=== PATIENT | female | born 1970 | race Caucasian/White ===

== ENCOUNTER 2016-08-23 22:34 | Emergency (ER) | payer OTHER ==
[~2016-08-23] VITALS: Ht 157.5 cm; Wt 93.2 kg
[~2016-08-23 22:34] MED LIST: ALBU8.5H2 IH; BECL8.7A5 INH; CAPT50TA3 PO; CLON0.5T PO; LIT300 PO; OMEP-113 PO; PROP160C2 PO; TOPI50TA32 PO; TRAM50TA2 PO
[2016-08-23 22:46] VITALS: BP 132/92; PULSE 77; RESP 16; O2SAT 97
--- NOTE | 2016-08-23 22:58 | ED.REPORT ---
HPI-Allergic Reaction Date of Service Aug 23, 2016 ED Provider: Edward Arnett MD A 45 year old female with a history of hypertension, DM, hyperlipidemia, CAD, PSVT, and PVCs presents to the ED with right-sided facial swelling onset yesterday. The patient also reports facial tingling and throat swelling. She denies dysphagia. The patient took Benadryl x2 just prior to arrival. She believes her symptoms may be an allergic reaction to contrast she drank for an MRI yesterday. The patient has experienced similar symptoms in the past in response to processed food. Nursing Notes Stated Complaint: POSSIBLE SWELLING OF FACE AND THROAT Chief Complaint: Allergic Reaction Nursing Notes Reviewed: Yes Allergies: Coded Allergies: Sulfa (Sulfonamide Antibiotics) (Verified Allergy, Unknown, 08/20/15) acetaminophen (Verified Allergy, Unknown, 08/20/15) cefaclor (Verified Allergy, Unknown, 08/20/15) celecoxib (Verified Allergy, Unknown, 08/20/15) naproxen (Verified Allergy, Unknown, 08/20/15) nitrofurantoin (Verified Allergy, Unknown, 08/20/15) prochlorperazine (Verified Allergy, Unknown, 08/20/15) propoxyphene (Verified Allergy, Unknown, 08/20/15) venlafaxine (Verified Allergy, Unknown, 08/20/15) Scheduled Beclomethasone Dipropionate (Qvar) 8.7 Gm Aer.w.adap 2 PUFF INH BID Captopril (Captopril) 50 Mg Tablet 50 MG PO BID Clonazepam (Klonopin) 0.5 Mg Tablet 0.5 MG PO DAILY [place] Carbonate ([place] Carbonate) 300 Mg Cap 300 MG PO BID Omeprazole Magnesium (Omeprazole) 20 Mg Capsule.dr 40 MG PO DAILY Prednisone (PredniSONE) 20 Mg Tablet 20 MG PO TID Topiramate (Topamax) 50 Mg Tablet 50 MG PO BID Scheduled PRN Albuterol HFA (Proair HFA) 8.5 Gm Hfa.aer.ad 2 PUFFS IH Q4 PRN PRN For Shortness of Breath Tramadol (Tramadol) 50 Mg Tablet 50 MG PO Q4H PRN PRN For Pain Miscellaneous Medications Propranolol ER (Propranolol ER) 160 Mg Cap.sa.24h 160 MG PO General Time Seen by MD: 22:54 Chief Complaint Swelling face Hx Obtained From: Patient Arrived By: Walk-in Onset Occurred: Yesterday Context of Onset: Unknown Symptom Duration: Since onset Progression Since Onset: Gradually worsening Severity: Current: No pain currently Severity: Maximum: No pain Associated with: Denies: Difficulty swallowing, Vomiting Pertinent Negative: Relieved by nothing Immunizations: Unknown Recent Healthcare: Recent doctor visit Similar Sx Previous: Yes Past Medical History Past Medical History Notes: fibromalgyia, multiple ortho surgeries Past Medical History Obesity PVC PSVT GERD Migraines HTN Hyperlipidemia Coronary artery disease DM Concussion - 1996 Reports: Hypertension Past Surgical History Multiple knee, shoulder, ankle surgeries Cholecystectomy Hysterectomy Family History Cancer (breast, colon, cervical, uterine) Smoking History Never Smoker Social History Alcohol Use: Denies alcohol use Drug Use: Denies drug use Occupation lives with boyfriend, no work or school Ambulatory Status Independent Review of Systems Review of Systems Note: + facial paresthesia - dysphagia Constitutional: Denies: Fever Ears / Nose / Throat: Reports: Throat swelling Respiratory: Denies: Non-productive cough, Shortness of breath GI: Denies: Vomiting Skin: Reports Swelling (Right-sided face) Complete sys rev & neg: except as marked. Physical Exam Initial Vital Signs Vital Signs (First) Date Time Temp Pulse Resp B/P Pulse Ox O2 Delivery O2 Flow Rate FiO2 08/23/16 22:46 36.4 77 16 132/92 97 Room Air Initial VS: Reviewed, Vital signs abnormal Head / Eyes: Atraumatic, Normocephalic Neck: Supple, Full range of motion Neurologic: Alert, Oriented, Nonfocal Psychiatric: Mood/affect normal, Behavior normal, Normal thought content General/Constitutional: Awake, Alert Respiratory / Chest: Breath sounds NL, Breath sounds = bilat, No respiratory distress Cardiovascular: Heart rate NL, Regular rhythm, Heart sounds NL Skin: No rash, Warm, Dry No urticaria ENT: Airway patent, Mucous membranes moist Pharynx / Tonsils / Uvula: Positive: Uvula edematous Left-sided facial swelling Left-sided pharyngeal edema Interpretation & Diagnostics Lab Results Interpretation Test 08/23/16 23:05 Hold Purple Top Tube Received (Received) Hold Blue Top Tube Received (Received) Hold [place] Top Tube Received (Received) Re-Eval/Medical Decision Med Decision/Clinical Course Allergic reaction, possibly to captopril, CT contrast dye, or sulfites. Instructed to avoid these. We will use Benadryl and prednisone for 3 days. Return to emergency room as needed. Follow-up with primary provider for persistent symptoms. Source of Hx: Old records Re-Evaluation/Progress : Time of Eval: 23:57 Patient Status: Condition improved Re-Evaluation/Progress Note: Discussed with patient lab results, diagnosis, and plan for discharge. Follow-up and return to the ER instructions given. Patient agrees with plan for care and all questions were addressed. Counseled Regarding: Diagnosis, Lab results, Need for follow-up, When/why to return to ED Discharge & Departure Primary Impression: Allergic reaction Encounter type: initial encounter Qualified Code: T78.40XA - Allergy, unspecified, initial encounter Disposition: Home Discharge Condition All VS Reviewed: Yes Condition: Stable Patient Instructions: Anaphylaxis (DC) Additional Instructions: The most likely causes of your allergies are possible sulfites in the new cheese , contrast allergy, or captopril. Avoid these and talk to your primary provider about an alternative to captopril. Benadryl 25 mg by mouth 3 times a day for the next few days, to be purchased [id number]. Prednisone 20 mg by mouth 3 times a day for 3 days, #9 prescription written. Return here if you have increasing trouble breathing. Call me at [phone] between the hours of 9 PM and 6 AM for the next few nights if you have any problems, questions or concerns. Referrals: Bryn Juan MD (PCP) Scribe Attestation Portions of this note were transcribed by Jadyn Oglesby. I, Dr. Arnett, personally performed the history, physical exam, and medical decision-making; I reviewed and confirmed the accuracy of the information in the transcribed note. Signed by: Melody Medina, 08/24/2016, 01:30 copies to: Bryn Juan MD, Howard L MD Aug 23, 2016 22:58 JADYN OGLESBY Aug 23, 2016 23:06
[2016-08-23] MEDS ORDERED: MethylprednisoLONE Sodium Succinate 62.5 mg/mL 2 mL Inj IVPUSH ONE (23:05)
[2016-08-23] MEDS ORDERED: 0.9% Sodium Chloride 1,000 ML IV ONE (23:05)
[2016-08-23] MEDS ORDERED: Ondansetron 2 mg/mL 2 mL Inj IVPUSH PRN (23:20)
[2016-08-24] MEDS ORDERED: PRE20 PO (00:06)
[2016-08-24 00:41] VITALS: BP 137/94; PULSE 72; RESP 16; O2SAT 96
[2016-10-11] MEDS ORDERED: METF500T4 PO (10:17)
[2016-10-11] MEDS ORDERED: BUTA1TAB52 PO (10:17)
[2016-10-11] MEDS ORDERED: ASPI-973 PO (10:17)
[2016-10-11] MEDS ORDERED: ZONI50CA3 PO (10:17)
[2016-10-11] MEDS ORDERED: TOPI50TA32 PO (10:17)
[2016-10-11] MEDS ORDERED: THIO300C PO (10:17)
[2016-10-11] MEDS ORDERED: ONDA-54 PO (10:17)
[2016-10-11] MEDS ORDERED: METO50TA3 PO (10:17)
[2016-10-11] MEDS ORDERED: ALBU8.5H2 INHALATION (10:17)
[2016-10-11] MEDS ORDERED: CAPT50TA3 PO (10:17)
[2016-10-11] MEDS ORDERED: BECL8.7A6 INHALATION (10:17)
== END 2016-08-24 00:49 | disposition home or self-care (01) ==
LOC: SED 22:34
DX: T78.40XA Allergy, unspecified, initial encounter (principal); X58.XXXA Exposure to other specified factors, initial encounter; Y92.9 Unspecified place or not applicable; Y93.9 Activity, unspecified; Y99.9 Unspecified external cause status; I10 Essential (primary) hypertension; E11.9 Type 2 diabetes mellitus without complications; E78.5 Hyperlipidemia, unspecified; I25.10 Atherosclerotic heart disease of native coronary artery without angina pectoris; I47.1 Supraventricular tachycardia; I49.3 Ventricular premature depolarization; K21.9 Gastro-esophageal reflux disease without esophagitis; Z88.2 Allergy status to sulfonamides; Z88.6 Allergy status to analgesic agent; Z88.1 Allergy status to other antibiotic agents; Z88.8 Allergy status to other drugs, medicaments and biological substances; Z88.5 Allergy status to narcotic agent
CPT/HCPCS: 96361; 96374; 96375; 99284; J1200; J2405; J2930; J7030

== ENCOUNTER 2016-10-15 05:41 | Day surgery (SDC) | payer OTHER ==
[~2016-10-15] VITALS: Ht 157.5 cm; Wt 93.2 kg
[2016-10-15] VITALS (9 sets, daily range): BP systolic 68–152; BP diastolic 76–91; PULSE 62–84; RESP 16–23; O2SAT 92–100
[~2016-10-15 05:41] MED LIST changes: -ALBU8.5H2 IH; +ALBU8.5H2 INHALATION; +ASPI-973 PO; -BECL8.7A5 INH; +BECL8.7A6 INHALATION; +BUTA1TAB52 PO; -CLON0.5T PO; -LIT300 PO; +Lactated Ringer's 1,000 ML IV ONE; +METF500T4 PO; +METO50TA3 PO; -OMEP-113 PO; +ONDA-54 PO; -PROP160C2 PO; +THIO300C PO; -TRAM50TA2 PO; +ZONI50CA3 PO
[2016-10-15] MEDS ORDERED: Ondansetron 2 mg/mL 2 mL Inj ONE (05:42)
[2016-10-15] MEDS ORDERED: Lidocaine PF 1% 30 mL Inj ONE (05:42)
[2016-10-15] MEDS ORDERED: fentaNYL-PF 50 mCg/mL 2 mL Inj ONE (05:42)
[2016-10-15] MEDS ORDERED: Rocuronium 10 mg/mL 5 mL Inj ONE (05:42)
[2016-10-15] MEDS ORDERED: Dexamethasone 4 mg/mL Inj ONE (05:42)
[2016-10-15] MEDS ORDERED: Propofol 10,000 mCg/mL 20 mL Inj ONE (05:42)
[2016-10-15] MEDS ORDERED: Lidocaine 2%-Epi 1:100,000 20 mL Inj INFILTRATE ONE (07:25)
[2016-10-15] MEDS ORDERED: Lactated Ringer's 500 ML IV PRN (08:13)
[2016-10-15] MEDS ORDERED: Lactated Ringer's 1,000 ML IV SCH (08:13)
[2016-10-15] MEDS ORDERED: Phenylephrine 10,000 mCg/mL Inj IVPUSH PRN (08:15)
[2016-10-15] MEDS ORDERED: MetoCLOpramide 5 mg/mL 2 mL Inj IVPUSH PRN (08:15)
[2016-10-15] MEDS ORDERED: Ondansetron 2 mg/mL 2 mL Inj IVPUSH PRN (08:15)
[2016-10-15] MEDS ORDERED: fentaNYL-PF 50 mCg/mL 2 mL Inj IVPUSH PRN (08:15)
[2016-10-15] MEDS ORDERED: Labetalol 5 mg/mL 4 mL Inj IV PRN (08:15)
[2016-10-15] MEDS ORDERED: Dexamethasone 4 mg/mL Inj IVPUSH PRN (08:15)
[2016-10-15] MEDS ORDERED: EPHEDrine Sulfate 50 mg/mL Inj IVPUSH PRN (08:15)
[2016-10-15] MEDS ORDERED: HYDROmorphone 1 mg/mL Inj IVPUSH PRN (08:15)
[2016-10-15] MEDS ORDERED: Atropine 0.4 mg/mL Inj IVPUSH PRN (08:15)
--- NOTE | 2016-10-15 08:16 | PCM.HPANE ---
Patient Data Date of Service: Oct 15, 2016 Surgeon Admitting Provider: Attending Provider:Christ Douglas MD Primary Care Physician:Antonio Marcelo MD Other Provider:Randy Galeas Anesthesia Reason for Visit Chronic Tonsillitis Ht/WT & BMI Height (Feet): 5 Height (Inches): 2.00 Weight (Kilograms): 93.2 Body Mass Index 37.00 Allergies Coded Allergies: Sulfa (Sulfonamide Antibiotics) (Verified Allergy, Unknown, 08/20/15) acetaminophen (Verified Allergy, Unknown, 08/20/15) cefaclor (Verified Allergy, Unknown, 08/20/15) celecoxib (Verified Allergy, Unknown, 08/20/15) naproxen (Verified Allergy, Unknown, 08/20/15) nitrofurantoin (Verified Allergy, Unknown, 08/20/15) prochlorperazine (Verified Allergy, Unknown, 08/20/15) propoxyphene (Verified Allergy, Unknown, 08/20/15) venlafaxine (Verified Allergy, Unknown, 08/20/15) Past Anesthesia History Anesthesia History: Denies:: Abnormal Airway, Anesthesia Reactions (hx nausea/ vomiting), Difficult Intubation, Fam Anesthesia Reaction, Fam Malignant Hypertherm, Malignant Hyperthermia Diabetes History Hx Diabetes?: No Type of Diabetes: Type II Glycemic Control: Oral Medication MRSA MRSA: No Medications Hypertension Medication: Yes Home Meds Incl Beta Manish: Yes Date Beta Manish Taken: Oct 15, 2016 Time Beta Manish Taken: 0430 Reported Medications Alpha Lipoic Acid 300 Mg [id number] Mg PO DAILY 10/11/16 Zonisamide 50 Mg Smgthew33 Mg PO BID 10/11/16 Beclomethasone Dipropionate (Qvar)8.7 Gm Aer.w.adap2 Puff INHALATION BID #8.7 GM 10/11/16 Albuterol HFA (Proair HFA)8.5 Gm Hfa.aer.ad2 Puffs INHALATION Q4H PRN For Shortness of Breath #1 INHALER 10/11/16 Ondansetron 8 Mg Tablet8 Mg PO Q8H PRN For Nausea 10/11/16 Metoprolol Tartrate 50 Mg Fnginb17 Mg PO BID 30 Days Ref 0 10/11/16 Metformin 500 Mg Tyepsz096 Mg PO BID Ref 0 10/11/16 Captopril 50 Mg Ujdhiz31 Mg PO BID Ref 0 10/11/16 Butalbital/Acetaminophen 50-325 mg 1 Each Tablet1-2 Tablet PO Q4H 10/11/16 Aspirin 81 Mg Jqtzxo59 Mg PO DAILY Ref 0 10/11/16 Discontinued Reported Medications Topiramate (Topamax)50 Mg Rxpxkr51 Mg PO BID Ref 0 10/11/16 Topiramate (Topamax)50 Mg Iieiap94 Mg PO BID 30 Days Ref 0 10/25/14 Beclomethasone Dipropionate (Qvar)8.7 Gm Aer.w.adap2 Puff INH BID 10/25/14 Propranolol ER 160 Mg Cap.sa.83w445 Mg PO 10/25/14 Albuterol HFA (Proair HFA)8.5 Gm Hfa.aer.ad2 Puffs IH Q4 PRN For Shortness of Breath #1 INHALER 10/25/14 Omeprazole Magnesium (Omeprazole)20 Mg Capsule.dr40 Mg PO DAILY 30 Days Ref 0 10/25/14 [place] Carbonate 300 Mg Ljh723 Mg PO BID 10/25/14 Clonazepam (Klonopin)0.5 Mg Tablet0.5 Mg PO DAILY For Anxiety 30 Days Ref 0 10/25/14 Captopril 50 Mg Dvrsto90 Mg PO BID 30 Days Ref 0 10/25/14 Discontinued Scripts Prednisone (PredniSONE)20 Mg Mdbfvx64 Mg PO TID #9 TABLET Prov:Edward Arnett MD 08/24/16 Tramadol 50 Mg Djgyeb49 Mg PO Q4H PRN For Pain #10 TABLET Ref 0 Prov:Martine Rivera PRODUCT DEVELOPMENT 03/13/15 History HEENT History: Positive for:: Dysphagia (tonsils current admission problem) Hearing Problem TMJ Denies:: Abnormal Airway Cataracts Difficult Intubation Glaucoma Hx of Heart Problems?: Yes Cardiovascular History: Positive for:: Atrial Fibrillation Hypertension Irregular Heartbeat (palpitations, PSVT ) Denies:: AICD Chest Pain Congestive Heart Failure Pacemaker Thrombophlebitis Valvular Heart Disease (echo 10/2015- ef 60-65%) Hx of Respiratory Problem?: Yes Respiratory History: Positive for:: Asthma Use of C-PAP Machine Use of Inhalers / NEBS Denies:: COPD Cough Hemoptysis Oxygen Administration Pneumonia Tuberculosis Hx Neurologic Problems?: Yes Neurological History: Positive for:: Dizziness (vestibular issues r/t hearing loss) Headaches (sometimes daily - r/t TBI 1996) Denies:: CVA Dementia Multiple Sclerosis Parkinson's Disease (benign essential tremor- mostly hands) Seizures TIA Other Neurological Pertinent: diabetic polyneuropathy- sometimes feet are numb Hx of GI Problems?: Yes Gastrointestinal History: Positive for:: Gall Bladder Disease (removed) Gastroesphageal Reflux Rectal Bleeding Denies:: Cirrhosis Diverticulitis Gastrointestinal Bleeding Hiatal Hernia Hx of Problems?: Yes Genitourinary History: Positive for:: Urinary Tract Infection (hx of recurrent related to bladder sling, not currently a problem) Female Hx: Positive for:: Problems with Breasts? (cystic breasts) Denies:: Currently (hysterectomy) Skin History: Denies:: History Skin Disorders? Pressure Ulcers Hx Musculoskeletal Problems?: Yes Musculoskeletal History: Positive for:: Back Injury (hx of lami L1-5) Fibromyalgia Osteoarthritis Denies:: Joint Replacement Hx of Psycho/Social Problems?: Yes Psycho Social History: Positive for:: Hx Depression Denies:: Anxiety Hx Surgeries?: Yes (hysterectomy, bilat knee repair, foot/hand/shoulder repair , ) Hx Any Other Health Problems?: Yes Other History: Denies:: Cancer Thyroid Disease History Blood Transfusions: Positive for:: Accept Blood Products? Denies:: Blood Transfusions Hx Diabetes: No Hx Alcohol Use: Yes (occas)Hx Substance Use: No Smoking Status: Never Smoker Stop/Bang S-Snoring: Do You Snore Loudly: No T-Tired: feel tired, fatigued: No O-Obsered: Observed not breath: Yes P-Blood Pressure: treated: Yes B- Body Mass Index > 35 kg/m2: Yes A- Age over 50: No N- Neck Large Circumference: No G- Gender Male: No ABDI Total Score: 3 Risk Assessment Category Category 1A: Patient has history of documented sleep apnea, and HAS NOT received any narcotic, sedative or anesthesia administration during this stay. Category 1B: Patient has history of documented sleep apnea, and HAS received any narcotic , sedative or anesthesia administration during this stay Category 2: Patient has SUSPECTED Obstructive Sleep Apnea, and HAS received any narcotic , sedative or anesthesia administration during this stay. Category 3: Patient has SUSPECTED Obstructive Sleep Apnea and HAS NOT received narcotic, sedative or anesthesia administration during this stay. Category 4: Outpatient in Procedural Areas with known sleep apnea or who screen positive for High Risk via the STOP/BANG questionnaire. Exam Exam Vital Signs Vital Signs Date Time Temp Pulse Resp B/P Pulse Ox O2 Delivery O2 Flow Rate FiO2 10/15/16 06:48 36.2 62 16 119/79 97 Room Air 10/15/16 06:30 CPAP/BIPAP General Appearance: Alert, Oriented X3, No Acute Distress HEENT/AIRWAY: MP 2 Lungs: Clear to Auscultation, Normal Air Movement Heart: Normal S1, Normal S2, No Murmurs/Rubs/Gallops Meds/Labs/Diagnostics Admission Meds Current Medications Lactated Ringer's (Lr) 1,000 ml @ 120 mls/hr Q8H20M ONCE IV Last administered on 10/15/16 05:44; Start 10/15/16 at 05:00; Stop 10/15/16 at 13:19 Lidocaine/ Epinephrine (Xylocaine 2%-Epinephrine 1:100,000 Inj) 20 ml STK-MED ONCE INFILTRATE Last administered on 10/15/16 07:25; Start 10/15/16 at 07:25; Stop 10/15/16 at 07:35; Status DC Plan Impression Patient chart reviewed, patient interviewed and anesthestic plan with risks, benefits, and alternatives discussed, and informed consent obtained. NPO Status: 930pm ASA Physical Status: ASA2 Mod Systemic Disease Anesthetic Plan: GA Bene/Risks/Altern/Consents: Yes HP Complete Prior to Induction: Yes Tarik Hollingsworth DO Oct 15, 2016 08:16
--- NOTE | 2016-10-15 08:51 | PCM.ANEP1 ---
Post Anesthesia Phase 1 PACU Phase 1 Assessment Date of Service: Oct 15, 2016 Vital Signs Vital Signs Date Time Temp Pulse Resp B/P Pulse Ox O2 Delivery O2 Flow Rate FiO2 10/15/16 06:48 36.2 62 16 119/79 97 Room Air 10/15/16 06:30 CPAP/BIPAP Level of Alertness: Awake, talking BACK's with Equal Strength: Yes Pain: No Nausea or Vomiting: No Oxygen Delivery: Simple Mask Lungs: Clear to Auscultation, Normal Air Movement Dermatome Level: Full Sensation Tarik Hollingsworth DO Oct 15, 2016 08:51
[2016-10-15] MEDS: HYDROcodone-APAP 7.5-325 mg/15 mL 15 mL Solution ONE ×2 (09:39→10:00)
--- NOTE | 2016-10-15 10:23 | PCM.ANEP1 ---
Post Anesthesia Phase 1 PACU Phase 1 Assessment Date of Service: Oct 15, 2016 Vital Signs Vital Signs Date Time Temp Pulse Resp B/P Pulse Ox O2 Delivery O2 Flow Rate FiO2 10/15/16 10:00 73 16 152/91 97 Nasal Cannula 2 10/15/16 09:26 64 18 68/ 92 Room Air 10/15/16 09:15 67 137/87 96 Nasal Cannula 2 10/15/16 08:51 Simple Mask 10/15/16 08:45 70 17 134/86 96 Room Air 10/15/16 08:40 84 19 130/76 100 Simple Mask 10 10/15/16 08:35 75 20 134/83 100 Simple Mask 10 10/15/16 08:26 36.6 77 23 130/85 98 Simple Mask 10 10/15/16 06:48 36.2 62 16 119/79 97 Room Air 10/15/16 06:30 CPAP/BIPAP Anesthetic Administered: GA Level of Alertness: Awake, talking BACK's with Equal Strength: Yes Pain: No Nausea or Vomiting: No Oxygen Delivery: Simple Mask Lungs: Clear to Auscultation, Normal Air Movement Dermatome Level: Full Sensation Tarik Hollingsworth DO Oct 15, 2016 10:23
--- NOTE | 2016-10-15 10:26 | PCM.ANEP2 ---
Post Anesthesia Evaluation ASA/CMS Post Anesthesia Date of Service: Oct 15, 2016 VS in Patient's Normal Range?: Yes Resp Stable; Airway Patent?: Yes CV Function & Hydration Stable: Yes Mental Status Recovered?: Yes Pain control Satisfactory?: Yes N/V Control Satisfactory?: Yes Tarik Hollingsworth DO Oct 15, 2016 10:26
--- NOTE | 2016-10-15 20:29 | OP ---
[address] [address] OPERATIVE REPORT PATIENT: EWELINA COSTA : 1970 MR#: [id number] ADMIT: 10/15/2016 JOB ID: [id number] DATE OF SURGERY: SURGEON: Christ Douglas MD. PREOPERATIVE DIAGNOSIS(ES): Recurrent tonsillitis. Tonsillar hypertrophy. POSTOPERATIVE DIAGNOSIS(ES): Recurrent tonsillitis. Tonsillar hypertrophy. OPERATION PERFORMED: Tonsillectomy. The patient was brought to the operating room after an explanation of procedure and possible complications. First, after endotracheal intubation, the anterior and posterior tonsillar pillars were injected with 2% Xylocaine, 100,000 epinephrine. Dissection of the palatine tonsils bilaterally was carried out with Trusler-David scissors and electrocauterization. The patient tolerated the procedure well. A 4-0 chromic was utilized in the right tonsillar fossa to control bleeding,
== END 2016-10-15 23:59 | disposition home or self-care (01) ==
LOC: SAS 05:41
PROVIDERS: ATTEND Otolaryngology
DX: J35.01 Chronic tonsillitis (principal); I10 Essential (primary) hypertension; E11.9 Type 2 diabetes mellitus without complications; Z79.84 Long term (current) use of oral hypoglycemic drugs; J45.909 Unspecified asthma, uncomplicated; Z79.82 Long term (current) use of aspirin
CPT/HCPCS: 42826; J1100; J1170; J2250; J2405; J3010; J7120

== ENCOUNTER 2016-10-29 17:28 | Emergency (ER) | payer OTHER ==
[~2016-10-29] VITALS: Ht 157.5 cm; Wt 95.0 kg
[~2016-10-29 17:28] MED LIST changes: -Atropine 0.4 mg/mL Inj IVPUSH PRN; -Bupivacaine-MPF 0.25% 30 mL Inj ONE; -CeFAZolin Inj 2 GM in IV Premix 1 EACH IV ONE; -CeFAZolin Inj 2 gm / 50mL D5W IV ONE; -Clindamycin 900 mg/50 mL D5W Premix IV ONE; -Clindamycin Inj 900 MG in IV Premix 1 EACH IV ONE; -Dexamethasone 4 mg/mL Inj IVPUSH PRN; -Dexamethasone 4 mg/mL Inj ONE; -EPHEDrine Sulfate 50 mg/mL Inj IVPUSH PRN; -HYDROcodone-APAP 5-325 mg Tablet PO PRN; -HYDROmorphone 1 mg/mL Inj IVPUSH PRN; -HYDROmorphone 2 mg/mL Inj ONE; -Ketamine 10 mg/mL 20 mL Inj ONE; -Ketorolac 15 mg/mL Inj IVPUSH ONE; -Labetalol 5 mg/mL 20 mL Inj ONE; -Labetalol 5 mg/mL 4 mL Inj IV PRN; -Lactated Ringer's 1,000 ML IV ONE; -Lactated Ringer's 1,000 ML IV SCH; -Lactated Ringer's 500 ML IV PRN; -MetoCLOpramide 5 mg/mL 2 mL Inj IVPUSH PRN; -Neostigmine 1 mg/mL 10 mL Inj ONE; -Ondansetron 2 mg/mL 2 mL Inj IVPUSH PRN; -Ondansetron 2 mg/mL 2 mL Inj ONE; -Phenylephrine 10,000 mCg/mL Inj IVPUSH PRN; -Propofol 10,000 mCg/mL 20 mL Inj ONE; -Rocuronium 10 mg/mL 5 mL Inj ONE; -Ropivacaine-PF 0.5% 30 mL Inj INFILTRATE ONE; -fentaNYL-PF 50 mCg/mL 2 mL Inj ONE; -hydrALAZINE 20 mg/mL Inj IVPUSH PRN; -hydrOXYzine Pamoate 25 mg Capsule ONE
[2016-10-29 17:35] VITALS: BP 133/75; PULSE 102; RESP 17; O2SAT 96
--- NOTE | 2016-10-29 17:54 | ED.REPORT ---
HPI-Extremity Problem Lower Date of Service Oct 29, 2016 ED Provider: Jacinta Johnston MD A 46 year old female with a medical history including diabetes, hypertension, CAD, and arrhythmias s/p recent left hip arthroscopy with labral repair major and acetabular and femoral neck osteoplasty (today - 10/29/16) presents to the ED via EMS with left hip pain after a ground level fall just prior to arrival. The patient was exiting her vehicle, returning home from surgery to her left hip , when she slipped and fell. The patient hit her head but did not lose consciousness. She denies vision change, nausea, vomiting, or other symptoms. EMS found the patient with a BP of 116/76, a heart rate of 100, and a respiration rate of 25. She was given fentanyl and Zofran en route. The patient is not anticoagulated. Nursing Notes Stated Complaint: FALL Chief Complaint: Extremity Trauma Nursing Notes Reviewed: Yes Allergies: Coded Allergies: Sulfa (Sulfonamide Antibiotics) (Verified Allergy, Unknown, 10/29/16) acetaminophen (Verified Allergy, Unknown, 10/29/16) cefaclor (Verified Allergy, Unknown, 10/29/16) celecoxib (Verified Allergy, Unknown, 10/29/16) naproxen (Verified Allergy, Unknown, 10/29/16) nitrofurantoin (Verified Allergy, Unknown, 10/29/16) prochlorperazine (Verified Allergy, Unknown, 10/29/16) propoxyphene (Verified Allergy, Unknown, 10/29/16) venlafaxine (Verified Allergy, Unknown, 10/29/16) Scheduled Alpha Lipoic Acid (Alpha Lipoic Acid) 300 Mg Capsule 300-600 MG PO DAILY Aspirin (Aspirin) 81 Mg Tablet 81 MG PO DAILY Beclomethasone Dipropionate (Qvar) 8.7 Gm Aer.w.adap 2 PUFF INHALATION BID Butalbital/Acetaminophen 50-325 mg (Butalbital/Acetaminophen 50-325 mg) 1 Each Tablet 1-2 TABLET PO Q4H Captopril (Captopril) 50 Mg Tablet 50 MG PO BID Metformin (Metformin) 500 Mg Tablet 500 MG PO BID Metoprolol Tartrate (Metoprolol Tartrate) 50 Mg Tablet 50 MG PO BID Zonisamide (Zonisamide) 50 Mg Capsule 50 MG PO BID Scheduled PRN Albuterol HFA (Proair HFA) 8.5 Gm Hfa.aer.ad 2 PUFFS INHALATION Q4H PRN PRN For Shortness of Breath Ondansetron (Ondansetron) 8 Mg Tablet 8 MG PO Q8H PRN PRN For Nausea General Time Seen by MD: 17:50 Chief Complaint Hip injury left Hx Obtained From: Patient Arrived By: Ambulance Onset Occurred: Just prior to arrival Symptom Duration: Since onset Caused by: Accidental, Fall on ground Location: : Hip left Quality: Painful Severity: Current: Moderate Severity: Maximum: Moderate Associated with: Denies: Fever, Loss of consciousness, Nausea, Vomiting Pertinent Negative: Relieved by nothing Immunizations: Unknown Recent Healthcare: Recent doctor visit, Previous surgery Past Medical History Past Medical History Notes: fibromalgyia, multiple ortho surgeries Past Medical History Obesity PVC PSVT Atrial fibrillation GERD Migraines HTN Hyperlipidemia Coronary artery disease DM type 2 Concussion - 1996 TMJ Asthma Cystic breasts Depression Past Surgical History Multiple knee, shoulder, ankle surgeries Cholecystectomy Hysterectomy LAMI L1-5 Left hip arthroscopy with labral repair major and acetabular and femoral neck osteoplasty (10/29/16) Family History Cancer (breast, colon, cervical, uterine) Smoking History Never Smoker Social History Alcohol Use: Denies alcohol use Drug Use: Denies drug use Other Social History: Good social support Occupation lives with boyfriend, no work or school Ambulatory Status Independent Review of Systems Review of Systems Note: + Head trauma Constitutional: Denies: Fever Musculoskeletal: Reports: Joint pain (Left hip) Neurologic: Denies: Change LOC, Vision change Complete sys rev & neg: except as marked. Respiratory: Denies: Non-productive cough, Shortness of breath GI: Denies: Nausea, Vomiting Physical Exam Physical Exam Notes: Initial Vital Signs Vital Signs (First) Date Time Temp Pulse Resp B/P Pulse Ox O2 Delivery O2 Flow Rate FiO2 10/29/16 17:35 36.8 102 17 133/75 96 Room Air Initial VS: Reviewed, Vital signs abnormal ENT: Conjunctiva normal, No scleral icterus Respiratory: Breath sounds normal, Clear to auscultation, No respiratory distress Abdomen / GI: Soft, Non-tender Skin: Warm, Dry, No cyanosis Psychiatric: Mood/affect normal, Behavior normal, Normal thought content Lower Extremity / Pelvis / MS: Neurologic intact, Vascular intact Left Hip: Positive: Tenderness present... Surgical incision to left hip covered with clean, dry, and intact dressings No palpable hematoma General/Constitutional: Awake, Alert, No acute distress Cardiovascular: Regular rhythm, Heart sounds NL, No murmurs, No rubs Heart Rate / Rhythm: Positive: Tachycardia Neurologic: Oriented X3, Speech NL, No motor deficits, No sensory deficits Head / Eyes: Normocephalic Tenderness at base of skull Neck: Supple, Full range of motion, Non-tender, No midline vertebral tend Interpretation & Diagnostics Lab Results Interpretation Test 10/29/16 18:08 Hold Purple Top Tube Received (Received) Hold Blue Top Tube Received (Received) Hold Red Top Tube Received (Received) Hold [place] Top Tube Received (Received) X-Ray Interpretation Xray Interpretation: IMPRESSION: No visualized acute fracture or dislocation. However, if clinical concern and/or pain persist, short interval imaging followup in 7-10 days is recommended, as occult injury cannot be definitively excluded. Dictated by: Jane Morgan M.D. on 10/29/2016 at 18:29 Study Performed: AP pelvis with lateral view(s) of the left hip(s). X-Ray Ordered: Pelvis, Hip left Interpretation / Wet Read by: Interpret - Radiologist Re-Eval/Medical Decision Med Decision/Clinical Course The patient had surgery today and fell while getting out of the car. There is no obvious signs of trauma however the patient has increased pain. She was given pain medication with improvement in her pain. X-ray shows that there is no fracture. The patient also hit her head however she is not on any blood thinners and did not have loss of consciousness, she is not meeting criteria for head CT. Source of Hx: Old records Re-Evaluation/Progress #1: Time of Eval: 18:47 Patient Status: Condition improved Re-Evaluation/Progress Note: Patient's pain has improved but not resolved. Discussed with patient plan for more medication. Re-Evaluation/Progress #2: Time of Eval: 19:30 Patient Status: Condition improved Re-Evaluation/Progress Note: Discussed with patient lab and x-ray results, diagnosis, and plan for discharge. Follow-up and return to the ER instructions given. Patient agrees with plan for care and all questions were addressed. Counseled Regarding: Diagnosis, Lab results, Need for follow-up, When/why to return to ED Discharge & Departure Impression: Primary Impression: Contusion, hip Encounter type: initial encounter Laterality: left Qualified Code: S70.02XA - Contusion of left hip, initial encounter Additional Impression: Minor head injury Encounter type: initial encounter Qualified Code: S00.90XA - Unspecified superficial injury of unspecified part of head, initial encounter Disposition: Home Discharge Condition All VS Reviewed: Yes Condition: Improved Patient Instructions: Contusions in Adults (ED), Minor Head Injury (ED) Additional Instructions: Thank you for entrusting us with your care. Your exam today was reassuring. No abnormalities were visualized on your x-ray. Call your orthopedist for a follow-up appointment and to update them on your fall. Also call your primary care physician for a follow-up appointment. Return to the ER with any new or worsening symptoms. Referrals: Antonio Marcelo MD (PCP) Marcus Heller MD Attestation Portions of this note were transcribed by Jadyn Oglesby. I, Dr. Johnston, personally performed the history, physical exam, and medical decision-making; I reviewed and confirmed the accuracy of the information in the transcribed note. Signed by: Melody Medina, 10/29/2016, 19:45 copies to: Antonio Marcelo MD; Marcus Heller MD, Jena M MD Oct 29, 2016 17:54 JADYN OGLESBY Oct 29, 2016 18:07
[2016-10-29] MEDS ORDERED: HYDROmorphone 0.5 mg/0.5 mL iSecure Syringe IVPUSH PRN (17:55)
[2016-10-29] MEDS ORDERED: 0.9% Sodium Chloride 1,000 ML IV ONE (18:05)
--- NOTE | 2016-10-29 18:32 | DRSVH ---
PROCEDURE: X-RAY PELVIS W/LAT HIP (LT) ([id number]) INDICATIONS: fall TECHNIQUE: AP pelvis with lateral view(s) of the left hip(s). COMPARISON: [facility], CR, XR SURG FLUORO C-ARM > 1 HR, 10/29/2016, 7:15. [facility], CR, XR SURG FLOURO EA 30 MIN, 10/29/2016, 7:15. [facility], CT, CT HIP LT WO C ON, 10/03/2016, 9:07. [facility], MR, MR HIP LT W CON, 08/22/2016, 15:02. FINDINGS: Bones: No fractures or dislocations. Pelvic ring appears intact. No suspicious bony lesions. Lowe r lumbar fixation is present. Soft tissues: The visualized bowel gas pattern is normal. No suspicious soft tissue calcifications. IMPRESSION: No visualized acute fracture or dislocation. However, if clinical concern and/or pain pe rsist, short interval imaging followup in 7-10 days is recommended, as occult injury cannot be defini tively excluded. Dictated by: Jane Morgan M.D. on 10/29/2016 at 18:29 Approved by: Jane Morgan M.D. on 10/29/2016 at 18:31
[2016-10-29 19:00] VITALS: BP 112/66; PULSE 84; RESP 16; O2SAT 95
[2016-10-29 20:17] VITALS: BP 145/81; PULSE 93; RESP 15; O2SAT 100
== END 2016-10-29 20:07 | disposition home or self-care (01) ==
LOC: EDUNIT# 17:28 → SED 17:28 → EDBD 17:28 → SED 20:07
DX: S70.01XA Contusion of right hip, initial encounter (principal); S09.90XA Unspecified injury of head, initial encounter; W01.198A Fall on same level from slipping, tripping and stumbling with subsequent striking against other object, initial encounter; Y93.89 Activity, other specified; Y92.89 Other specified places as the place of occurrence of the external cause; Y99.8 Other external cause status; I11.9 Hypertensive heart disease without heart failure; E11.59 Type 2 diabetes mellitus with other circulatory complications; I25.10 Atherosclerotic heart disease of native coronary artery without angina pectoris; I48.91 Unspecified atrial fibrillation; J45.909 Unspecified asthma, uncomplicated; E78.5 Hyperlipidemia, unspecified; Z98.890 Other specified postprocedural states; Z79.82 Long term (current) use of aspirin; Z79.84 Long term (current) use of oral hypoglycemic drugs; Z88.1 Allergy status to other antibiotic agents; Z88.2 Allergy status to sulfonamides; Z88.5 Allergy status to narcotic agent
CPT/HCPCS: 73501; 96361; 96374; 99285; J1170; J7030

== ENCOUNTER → 2016-10-29 | Day surgery (SDC) | payer OTHER ==
[~2016-10-29] VITALS: Ht 157.5 cm; Wt 92.4 kg
[2016-10-29] VITALS (10 sets, daily range): BP systolic 102–122; BP diastolic 55–81; PULSE 60–94; RESP 12–17; O2SAT 96–99
[~2016-10-29] MED LIST changes: +Atropine 0.4 mg/mL Inj IVPUSH PRN; +Bupivacaine-MPF 0.25% 30 mL Inj ONE; +CeFAZolin Inj 2 GM in IV Premix 1 EACH IV ONE; +CeFAZolin Inj 2 gm / 50mL D5W IV ONE; +Clindamycin 900 mg/50 mL D5W Premix IV ONE; +Clindamycin Inj 900 MG in IV Premix 1 EACH IV ONE; +Dexamethasone 4 mg/mL Inj IVPUSH PRN; +Dexamethasone 4 mg/mL Inj ONE; +EPHEDrine Sulfate 50 mg/mL Inj IVPUSH PRN; +HYDROcodone-APAP 5-325 mg Tablet PO PRN; +HYDROmorphone 1 mg/mL Inj IVPUSH PRN; +HYDROmorphone 2 mg/mL Inj ONE; +Ketamine 10 mg/mL 20 mL Inj ONE; +Ketorolac 15 mg/mL Inj IVPUSH ONE; +Labetalol 5 mg/mL 20 mL Inj ONE; +Labetalol 5 mg/mL 4 mL Inj IV PRN; +Lactated Ringer's 1,000 ML IV SCH; +Lactated Ringer's 500 ML IV PRN; +MetoCLOpramide 5 mg/mL 2 mL Inj IVPUSH PRN; +Neostigmine 1 mg/mL 10 mL Inj ONE; +Ondansetron 2 mg/mL 2 mL Inj IVPUSH PRN; +Ondansetron 2 mg/mL 2 mL Inj ONE; +Phenylephrine 10,000 mCg/mL Inj IVPUSH PRN; +Propofol 10,000 mCg/mL 20 mL Inj ONE; +Rocuronium 10 mg/mL 5 mL Inj ONE; +Ropivacaine-PF 0.5% 30 mL Inj INFILTRATE ONE; -TOPI50TA32 PO; +fentaNYL-PF 50 mCg/mL 2 mL Inj ONE; +hydrALAZINE 20 mg/mL Inj IVPUSH PRN; +hydrOXYzine Pamoate 25 mg Capsule ONE
--- NOTE | 2016-10-29 07:04 | PCM.HPANE ---
Patient Data Date of Service: Oct 29, 2016 Surgeon Admitting Provider: Attending Provider:Marcus Heller MD Primary Care Physician:Antonio Marcelo MD Other Provider:Randy Galeas Anesthesia Reason for Visit Left Hip Labral Tear Ht/WT & BMI Height (Feet): 5 Height (Inches): 2.00 Weight (Kilograms): 92.4 Body Mass Index 37.00 Allergies Coded Allergies: Sulfa (Sulfonamide Antibiotics) (Verified Allergy, Unknown, 08/20/15) acetaminophen (Verified Allergy, Unknown, 08/20/15) cefaclor (Verified Allergy, Unknown, 08/20/15) celecoxib (Verified Allergy, Unknown, 08/20/15) naproxen (Verified Allergy, Unknown, 08/20/15) nitrofurantoin (Verified Allergy, Unknown, 08/20/15) prochlorperazine (Verified Allergy, Unknown, 08/20/15) propoxyphene (Verified Allergy, Unknown, 08/20/15) venlafaxine (Verified Allergy, Unknown, 08/20/15) Past Anesthesia History Anesthesia History: Denies:: Abnormal Airway (fyi- recent tonsillectomy on 10/15), Anesthesia Reactions (hx nausea/vomiting), Difficult Intubation, Fam Anesthesia Reaction, Fam Malignant Hypertherm, Malignant Hyperthermia Diabetes History Hx Diabetes?: Yes (type II) Type of Diabetes: Type II Glycemic Control: Oral Medication Current Bedside Blood Glucose: 108 MRSA MRSA: No Medications Blood Thinner: Aspirin Hypertension Medication: Yes Home Meds Incl Beta Manish: Yes (metoprolol) Date Beta Manish Taken: Oct 28, 2016 Time Beta Manish Taken: 2129 Reported Medications Alpha Lipoic Acid 300 Mg Bmbycjs528-413 Mg PO DAILY 10/11/16 Zonisamide 50 Mg Vybpbfc91 Mg PO BID 10/11/16 Beclomethasone Dipropionate (Qvar)8.7 Gm Aer.w.adap2 Puff INHALATION BID #8.7 GM 10/11/16 Albuterol HFA (Proair HFA)8.5 Gm Hfa.aer.ad2 Puffs INHALATION Q4H PRN For Shortness of Breath #1 INHALER 10/11/16 Ondansetron 8 Mg Tablet8 Mg PO Q8H PRN For Nausea 10/11/16 Metoprolol Tartrate 50 Mg Neared90 Mg PO BID 30 Days Ref 0 10/11/16 Metformin 500 Mg Gynpma082 Mg PO BID Ref 0 10/11/16 Captopril 50 Mg Fhlorq16 Mg PO BID Ref 0 10/11/16 Butalbital/Acetaminophen 50-325 mg 1 Each Tablet1-2 Tablet PO Q4H 10/11/16 Aspirin 81 Mg Jhynvz41 Mg PO DAILY Ref 0 10/11/16 History HEENT History: Positive for:: Hearing Problem TMJ Denies:: Abnormal Airway (fyi- recent tonsillectomy on 10/15/16) Cataracts Difficult Intubation Dysphagia Hx of Heart Problems?: Yes Cardiovascular History: Positive for:: Atrial Fibrillation Hypertension Irregular Heartbeat (palpitations, PSVT ) Denies:: AICD Chest Pain Congestive Heart Failure Pacemaker Thrombophlebitis Valvular Heart Disease (echo 10/2015- ef 60-65%) Hx of Respiratory Problem?: Yes Respiratory History: Positive for:: Asthma Use of C-PAP Machine Denies:: COPD Cough Hemoptysis Oxygen Administration Pneumonia Tuberculosis Hx Neurologic Problems?: Yes Neurological History: Positive for:: Dizziness (vestibular issues r/t hearing loss) Headaches (sometimes daily - r/t TBI 1996) Denies:: CVA Dementia Multiple Sclerosis Parkinson's Disease (benign essential tremor- mostly hands) Seizures Hx of GI Problems?: Yes Gastrointestinal History: Positive for:: Gastroesphageal Reflux Rectal Bleeding Denies:: Cirrhosis Diverticulitis Gastrointestinal Bleeding Hiatal Hernia Hx of Problems?: Yes Genitourinary History: Positive for:: Urinary Tract Infection (hx of recurrent related to bladder sling, not currently a problem) Female Hx: Positive for:: Problems with Breasts? (cystic breasts) Denies:: Currently (hysterectomy) Skin History: Denies:: History Skin Disorders? Pressure Ulcers Hx Musculoskeletal Problems?: Yes Musculoskeletal History: Positive for:: Back Injury (hx of lami L1-5) Musculoskeletal Trauma (left hip current admission problem) Denies:: Joint Replacement Hx of Psycho/Social Problems?: Yes Psycho Social History: Positive for:: Hx Depression Denies:: Anxiety Hx Surgeries?: Yes (hysterectomy, bilat knee repair, foot/hand/shoulder repair , ) Hx Any Other Health Problems?: Yes Other History: Denies:: Cancer Thyroid Disease History Blood Transfusions: Denies:: Blood Transfusions Hx Diabetes: Yes (type II)Bedside Blood Glucose: 108 Hx Alcohol Use: Yes (occas)Hx Substance Use: No Smoking Status: Never Smoker Stop/Bang S-Snoring: Do You Snore Loudly: No T-Tired: feel tired, fatigued: No O-Obsered: Observed not breath: Yes P-Blood Pressure: treated: Yes B- Body Mass Index > 35 kg/m2: Yes A- Age over 50: No N- Neck Large Circumference: No G- Gender Male: No ABDI Total Score: 3 Risk Assessment Category Category 1A: Patient has history of documented sleep apnea, and HAS NOT received any narcotic, sedative or anesthesia administration during this stay. Category 1B: Patient has history of documented sleep apnea, and HAS received any narcotic , sedative or anesthesia administration during this stay Category 2: Patient has SUSPECTED Obstructive Sleep Apnea, and HAS received any narcotic , sedative or anesthesia administration during this stay. Category 3: Patient has SUSPECTED Obstructive Sleep Apnea and HAS NOT received narcotic, sedative or anesthesia administration during this stay. Category 4: Outpatient in Procedural Areas with known sleep apnea or who screen positive for High Risk via the STOP/BANG questionnaire. Exam Exam Vital Signs Vital Signs Date Time Temp Pulse Resp B/P Pulse Ox O2 Delivery O2 Flow Rate FiO2 10/29/16 06:31 35.7 70 17 122/81 97 Room Air General Appearance: Oriented X3 HEENT/AIRWAY: MP 2 Lungs: Clear to Auscultation Heart: Exam Unremarkable Meds/Labs/Diagnostics Admission Meds Current Medications Lactated Ringer's (Lr) 1,000 ml @ ud STK-MED ONCE IV Last administered on 10/29t 06:30; Start 10/29/16 at 06:30; Stop 10/29/16 at 06:31; Status DC Bedside Blood Glucose: 108 Plan Impression Patient chart reviewed, patient interviewed and anesthestic plan with risks, benefits, and alternatives discussed, and informed consent obtained. NPO Status: 10/28@2200 ASA Physical Status: ASA2 Plus Emergency Bene/Risks/Altern/Consents: Yes HP Complete Prior to Induction: Yes Alexis Luna MD Oct 29, 2016 07:04
--- NOTE | 2016-10-29 09:35 | PCM.ORTHOP ---
Orthopedic Operative Report Date of Service: Oct 29, 2016 Pre Operative Diagnosis Left hip labral tear, femoral acetabular impingement, Post Operative Diagnosis Same Procedure Left hip arthroscopy, labral repair, acetabuloplasty, femoroplasty, partial synovectomy Surgeon Surgeon: Marcus Heller MD Assistants:Isael Slade Indication for Procedure Left hip labral tear Findings Per dictation Details of Procedure INDICATIONS FOR PROCEDURE AND SUMMARY: This patient has the clinical problem of femoroacetabular impingement. Essentially, there is an overgrowth of the femoral head and neck junction that is leading to the clinical problem of a torn labrum with its mechanical symptomatology and pain. The surgical procedure involves first a diagnostic arthroscopy and debridement or repair of the labral tear, followed by a separate entrance into the area of the impingement lesion. The hip is divided into two separate compartments termed the central and peripheral compartments. Traditionally, the procedures performed in the central compartment include labral debridement, synovectomy, and chondroplasty. The procedure described as acetabuloplasty involves exposing the tissue superior to the labrum and burring the bone to a less prominent structure to prevent impingement. The procedure described as a femoral neck resection includes treatment of the central compartment problems as well as re-positioning the extremity, starting new portals in the peripheral compartment (using fluoroscopic guidance once again), completing a diagnostic arthroscopy of this compartment and then finally resection of the femoral neck impingement lesion that is present. The concept of the procedure is somewhat like the evaluation of the shoulder where the glenohumeral compartment is evaluated, followed by the subacromial compartment. GROOVER AND TURNER SURGEON: A physician surgical rn was asked to be present at my request as a result of the significant surgical complexity associated with this procedure. Specifically, the arthroscopy resection of the femoral neck requires expert assistance with respect to the positioning of the arthroscope, which is a 70-degree scope, while the surgeon exchanges instruments to perform the resection and labral repair. During the operation, the services of physician surgical rn were medically indicated and necessary to provide exposure of the operative site for the surgical procedure and to maintain the limb in a proper position to carry out the operation safely and efficiently. Without the qualified health center assistant being present, it would have extended the operative procedure and made the procedure technically more difficult to perform. In my opinion, the assistance offered by a surgical technology instructor is not sufficient as a result of their lack of training with these instruments. A physician surgical rn therefore should be compensated for his/her time. PROCEDURE: Following the administration of general anesthesia, the patient was placed in the supine position on the Mcmanus and Nephew hip traction device, a lumbar plexus/fascia iliacus block was performed by the anesthesiologist for postoperative pain control. All prominences were properly padded, including the perineum and the ipsilateral arm. Examination of the left hip revealed a range of motion of 15 of internal rotation with 90 of flexion. The left hip was prepped and draped in the usual sterile fashion. The leg was then placed in traction. Under fluoroscopic guidance, anterior and anterolateral portals were then established in the central compartment. CENTRAL COMPARTMENT DIAGNOSTIC: Examination revealed left labral chondral delamination extending from the 10 o'clock to the 12 o'clock position with extension into the articular surface of the acetabulum. The labrum was loose to probing Significant fraying was encountered. The ligamentum teres was synovitic and the synovitis was removed with an RF The femoral cartilage revealed grade 1/2 changes CENTRAL COMPARTMENT PROCEDURE: The shaver and the ablator were then inserted. A limited capsulotomy was then performed over the area of the labral detachment. The sublabral recess was then cleared of soft tissue there and a bony resection of the anterior inferior iliac spine was then undertaken back to a normal configuration. Endoscopic and fluoroscopic visualization were used for confirmation. Following the resection, the labral repair was undertaken. A circumferential suture was then passed around the labrum. This was incorporated into a [place] knotless anchor. The anchor was impacted. The suture advanced and a solid repair was completed. The arthroscopic equipment was then removed. The leg was taken out of traction and repositioned to 45 degrees of flexion with neutral rotation. The anterior portal was then used for entry into the peripheral compartment while using fluoroscopic localization for the appropriate portal position along the femoral neck. PERIPHERAL COMPARTMENT DIAGNOSTIC: Endoscopic examination revealed a good labral seal. Further evaluation revealed the peripheral femoral cartilage delaminated with small cam lesion With regards to a cam lesion, a small bur was used to resect the bony lesion with the leg and extension with internal rotation neutral and external rotation of the foot as well as knee in 45 of flexion with internal, neutral and external rotation of the foot. This was visualized and guided with fluoroscopy throughout the femoroplasty PERIPHERAL COMPARTMENT PROCEDURE: Following the diagnostic arthroscopy of the peripheral compartment the impingement lesion was addressed. The soft tissue was resected from around the lesion, including a capsulectomy. A combination of the shaver and an ablator were employed for this purpose. The femoral neck impingement lesion was then completely resected in an arc from 10 o'clock to 1 o 'clock. The depth of the resection was approximately 4 mm with a proximal to distal dimension of approximately 15 mm. Following completion of the resection , the leg was then taken through a complete range of motion with the arthroscope in place and confirmation of eradication of the impingement lesion, especially in flexion and internal rotation was documented. The arthroscopic equipment was then removed, following thorough irrigation of the joint to assure that all bony debris was cleared. The wounds were closed using #4-0 Monocryl sutures, followed by a sterile dressing. The patient was then extubated and transported to the recovery room in stable condition, having tolerated the procedure well. Grafts, Implants: Implants-See Implant Record Complications There were no periprocedural complications identified. Condition Stable Anesthetic Administered: GA Catheters: None Output, Estimated Blood Loss: 5 Blood Admin during surgery: No Surgical Cast or Splint: Other Surgical Specimen Removed: No Specimen sent to Pathology: No copies to: Marcus Heller MD, Christopher L MD Oct 29, 2016 09:34
[2016-10-29] MEDS: fentaNYL-PF 50 mCg/mL 2 mL Inj IVPUSH PRN ×2 (10:04→10:10)
--- NOTE | 2016-10-29 12:24 | PCM.ANEP1 ---
Post Anesthesia Phase 1 PACU Phase 1 Assessment Date of Service: Oct 29, 2016 Vital Signs Vital Signs Date Time Temp Pulse Resp B/P Pulse Ox O2 Delivery O2 Flow Rate FiO2 10/29/16 11:57 75 99 Room Air 10/29/16 10:27 94 16 118/67 97 Room Air 10/29/16 10:15 73 17 113/65 97 Room Air 10/29/16 10:00 64 17 118/76 96 Room Air 10/29/16 09:45 60 17 109/66 96 Room Air 10/29/16 09:40 68 14 119/64 99 Simple Mask 8 10/29/16 09:35 75 14 110/55 98 Simple Mask 8 10/29/16 09:32 71 12 102/55 98 Simple Mask 8 10/29/16 09:29 36.5 77 14 103/60 97 Simple Mask 8 10/29/16 06:31 35.7 70 17 122/81 97 Room Air Anesthetic Administered: GA, Regional Block Level of Alertness: Awake, talking BACK's with Equal Strength: No Pain: Yes Nausea or Vomiting: No Oxygen Delivery: Simple Mask Lungs: Clear to Auscultation Alexis Luna MD Oct 29, 2016 12:24
--- NOTE | 2016-10-29 12:25 | PCM.ANEP2 ---
Post Anesthesia Evaluation ASA/CMS Post Anesthesia Date of Service: Oct 29, 2016 VS in Patient's Normal Range?: Yes Resp Stable; Airway Patent?: Yes CV Function & Hydration Stable: Yes Mental Status Recovered?: Yes Pain control Satisfactory?: Yes N/V Control Satisfactory?: Yes Alexis Luna MD Oct 29, 2016 12:25
== END | disposition home or self-care (01) ==
LOC: SAS 05:49
PROVIDERS: ATTEND Orthopaedic Surgery
DX: M24.152 Other articular cartilage disorders, left hip (principal); M25.852 Other specified joint disorders, left hip; I10 Essential (primary) hypertension; E11.9 Type 2 diabetes mellitus without complications; Z79.84 Long term (current) use of oral hypoglycemic drugs; J45.909 Unspecified asthma, uncomplicated; M79.7 Fibromyalgia
CPT/HCPCS: 29914; 29915; 76001; 76942; C1713; J0171; J1100; J1170; J2250; J2405; J2710; J2795; J3010; J7120; Q0177